=== PATIENT | female | born 2000 | race Hispanic/Latino ===

== ENCOUNTER 2020-12-05 13:18 | Emergency (ER) | payer MEDICARE ==
[~2020-12-05] VITALS: Ht 157.5 cm; Wt 54.9 kg
[2020-12-05 13:20] VITALS: BP 117/82
[2020-12-05 15:14] LABS: APPEARANCE,URINE Clear (CLEAR); BILIRUBIN,URINE Negative (NEGATIVE); COLOR,URINE Yellow (YELLOW); GLUCOSE, URINE (UA) Negative (NEGATIVE); KETONES,URINE Negative (NEGATIVE); LEUKOCYTE ESTERASE ,URINE Negative (NEGATIVE); NITRATE,URINE Negative (NEGATIVE); OCCULT BLOOD,URINE Negative (NEGATIVE); PROTEIN,URINE Negative (NEGATIVE)
[2020-12-05 15:16] LABS: HCG,QUAL RESULT NEGATIVE (NEGATIVE)
[2020-12-05] MEDS ORDERED: MORPHINE 2 MG SYG IVP ONE (15:30)
[2020-12-05] MEDS ORDERED: ONDANSETRON 4MG INJ IVP ONE (15:30)
[2020-12-05 15:36] LABS: BASOPHILS % (AUTO) 1.7 % (0.0-5.0); EOSINOPHILS % (AUTO) 1.1 % (0.0-8.0); HEMATOCRIT 37.7 % (36-48); LYMPHOCYTES % (AUTO) 38.3 % (21.0-51.0); MEAN CORPUSCULAR HEMOGLOBIN 23.3 pg (27.0-33.0); MEAN CORPUSCULAR HGB CONC 30.5 g/dL (32.0-36.0); MEAN CORPUSCULAR VOLUME 76.5 fL (80-100); MONOCYTES % (AUTO) 8.7 % (3.0-13.0); NEUTROPHILS % (AUTO) 49.9 % (40.0-77.0); PLATELET COUNT (AUTO) 391 K/uL (130-400); RED BLOOD CELL COUNT(AUTO) 4.93 MIL/uL (4.00-5.50); RED CELL DISTRIBUTION WIDTH 16.3 % (11.0-15.5); WHITE BLOOD COUNT (AUTO) 6.3 K/uL (4.8-10.8)
[2020-12-05 16:01] LABS: CREATININE 0.9 mg/dL (0.5-1.5); POTASSIUM 3.6 mmol/L (3.5-5.1)
[2020-12-05 16:05] LABS: ALBUMIN 4.3 g/dL (3.5-5.0); BILIRUBIN,TOTAL 0.5 mg/dL (0.2-1.0); TOTAL PROTEIN, SERUM 8.3 g/dL (6.0-8.3)
[2020-12-05] MEDS ORDERED: DICY20TA2 PO (17:00)
[2020-12-05] MEDS ORDERED: ONDA4TAB10 PO (17:00)
== END 2020-12-05 17:09 | disposition home or self-care (01) ==
LOC: EDH 13:18
DX: R10.31 Right lower quadrant pain (principal); R11.0 Nausea; R50.9 Fever, unspecified; Z79.899 Other long term (current) drug therapy
CPT/HCPCS: 36415; 74176; 80053; 81003; 81025; 83690; 85025; 96374; 96375; 99284; J2405